=== PATIENT | male | born 1945 | race Caucasian/White ===

== ENCOUNTER 2018-02-22 19:58 | Inpatient (IN) | payer OTHER ==
[~2018-02-22] VITALS: Ht 167.6 cm; Wt 178.6 kg
[2018-02-22 20:36] LABS: HEMATOCRIT 37.7 % (38.0-50.0); HEMOGLOBIN 12.3 G/DL (12.5-16.6); MCH 29.6 PG (29.0-34.0); MCHC 32.6 G/DL (30.0-36.0); MCV 90.6 FL (86-99); PLATELET COUNT 278 K/uL (156-360); RBC DIS.WIDTH-CV 14.7 % (11.8-14.6); RBC DIS.WIDTH-SD 48.7 % (39-53); RED BLOOD COUNT 4.16 M/uL (4.00-5.50); WHITE BLOOD COUNT 8.2 K/uL (4.1-10.2)
[2018-02-22] MEDS ORDERED: ASPIRIN81 M2 PO (20:37)
[2018-02-22] MEDS ORDERED: PRAVACHOL40 MG PO (20:38)
[2018-02-22] MEDS ORDERED: TERAZOSIN HCL5 MG PO (20:38)
[2018-02-22] MEDS ORDERED: METFORMIN HCL1000 MG PO (20:38)
[2018-02-22] MEDS ORDERED: VASOTEC5 MG PO (20:38)
[2018-02-22] MEDS ORDERED: HYDROCHLOROTHIA25 MG PO (20:38)
[2018-02-22] MEDS ORDERED: GABAPENTIN100 MG PO (20:39)
[2018-02-22] MEDS ORDERED: LEVEMIR100 UNIT/2 SC ×2 (20:39→23:13)
[2018-02-22] MEDS ORDERED: NOVOLOG 10100 UNITS/ SC ×2 (20:41)
[2018-02-22 20:54] LABS: CHLORIDE 105 mEq/L (99-109); POTASSIUM 3.8 mEq/L (3.7-5.4); SODIUM 143 mEq/L (136-147)
[2018-02-22 20:55] LABS: GLUCOSE 80 mg/dL (70-99)
[2018-02-22 20:59] LABS: CREATININE 0.8 mg/dL (0.6-1.3); GFR ESTIMATE (CALCULATED) > 59 mL/min/ (58.99-99999)
[2018-02-22 21:00] LABS: UREA NITROGEN (BUN) 18 mg/dL (9-23)
[2018-02-22 21:03] LABS: TROP-I INTERPRETATION NEGATIVE; TROPONIN-I 0.02 ng/mL (0.0-0.30)
[2018-02-22 21:06] LABS: BASE EXCESS 3.1 mEq/L (-3 to +3); CARBOXY HGB 1.8 % (0-5); DEVICE NC; METHEMOGLOBIN 0.5 % (0-1.5); O2 FLOW 5 L/MIN; PCO2 49 mm Hg (35-45); PO2 73 mm Hg (80-100); SITE LR; TOTAL RESP RATE 24 resp/min; pH 7.38 (7.35-7.45)
[2018-02-22] MEDS ORDERED: PRAVASTATIN SOD40 MG PO (23:11)
[2018-02-22] MEDS ORDERED: ENALAPRIL MALEAT5 MG PO (23:11)
[2018-02-22] MEDS ORDERED: HYTRIN5 MG PO (23:11)
[2018-02-23 00:31] VITALS: BP 141/74
[2018-02-23 04:56] VITALS: BP 156/72
[2018-02-23 06:16] LABS: HEMATOCRIT 39.3 % (38.0-50.0); HEMOGLOBIN 12.2 G/DL (12.5-16.6); MCH 28.5 PG (29.0-34.0); MCV 91.8 FL (86-99); PLATELET COUNT 257 K/uL (156-360); RBC DIS.WIDTH-CV 14.9 % (11.8-14.6); RBC DIS.WIDTH-SD 49.4 % (39-53); RED BLOOD COUNT 4.28 M/uL (4.00-5.50); WHITE BLOOD COUNT 9.7 K/uL (4.1-10.2)
[2018-02-23 06:35] LABS: CHLORIDE 103 MEQ/L (99-109); CREATININE 0.7 MG/DL (0.6-1.3); GFR ESTIMATE (CALCULATED) > 59 mL/min/ (58.99-99999); SODIUM 142 MEQ/L (136-147); UREA NITROGEN (BUN) 19 mg/dL (9-23)
[2018-02-23 06:40] LABS: GLUCOSE 208 mg/dL (70-99); POTASSIUM 4.9 MEQ/L (3.7-5.4)
[2018-02-23 06:45] VITALS: BP 152/78
[2018-02-23] MEDS ORDERED: BENEFIBER236 GM PO (12:03)
[2018-02-23 15:45] VITALS: BP 142/75
[2018-02-23 22:35] VITALS: BP 119/56
[2018-02-24 06:16] LABS: BASOPHIL (%) 0.6 % (0-1); BASOPHIL COUNT 0.1 K/uL (0-0.1); EOSINOPHIL (%) 2.8 % (0-5); EOSINOPHIL COUNT 0.3 K/uL (0-0.3); HEMATOCRIT 37.4 % (38.0-50.0); HEMOGLOBIN 11.6 G/DL (12.5-16.6); IMMATURE GRANULOCYTE (%) 0.4 % (0.0-0.7); LYMPHOCYTE (%) 12.3 % (15-42); LYMPHOCYTE COUNT 1.2 K/uL (1.0-2.8); MCH 28.6 PG (29.0-34.0); MCV 92.3 FL (86-99); MONOCYTE (%) 9.4 % (3-12); MONOCYTE COUNT 0.9 K/uL (0-0.8); NEUTROPHIL (%) 74.5 % (45-76); NEUTROPHIL COUNT 7.1 K/uL (1.8-6.4); PLATELET COUNT 274 K/uL (156-360); RBC DIS.WIDTH-CV 14.9 % (11.8-14.6); RBC DIS.WIDTH-SD 50.5 % (39-53); RED BLOOD COUNT 4.05 M/uL (4.00-5.50); WHITE BLOOD COUNT 9.5 K/uL (4.1-10.2)
[2018-02-24 06:41] LABS: CHLORIDE 103 MEQ/L (99-109); CREATININE 0.8 MG/DL (0.6-1.3); GFR ESTIMATE (CALCULATED) > 59 mL/min/ (58.99-99999); GLUCOSE 138 mg/dL (70-99); POTASSIUM 5.2 MEQ/L (3.7-5.4); SODIUM 144 MEQ/L (136-147); UREA NITROGEN (BUN) 23 mg/dL (9-23)
[2018-02-24 06:50] VITALS: BP 127/78
[2018-02-24 15:45] VITALS: BP 151/86
[2018-02-24 22:30] VITALS: BP 142/57
[2018-02-25 05:52] LABS: BASOPHIL (%) 0.7 % (0-1); BASOPHIL COUNT 0.1 K/uL (0-0.1); EOSINOPHIL (%) 3.8 % (0-5); EOSINOPHIL COUNT 0.3 K/uL (0-0.3); HEMATOCRIT 38.6 % (38.0-50.0); HEMOGLOBIN 11.9 G/DL (12.5-16.6); IMMATURE GRANULOCYTE (%) 0.5 % (0.0-0.7); LYMPHOCYTE (%) 12.4 % (15-42); LYMPHOCYTE COUNT 1.1 K/uL (1.0-2.8); MCH 28.5 PG (29.0-34.0); MCHC 30.8 G/DL (30.0-36.0); MCV 92.6 FL (86-99); MONOCYTE (%) 8.8 % (3-12); MONOCYTE COUNT 0.8 K/uL (0-0.8); NEUTROPHIL (%) 73.8 % (45-76); NEUTROPHIL COUNT 6.5 K/uL (1.8-6.4); PLATELET COUNT 253 K/uL (156-360); RBC DIS.WIDTH-CV 14.9 % (11.8-14.6); RBC DIS.WIDTH-SD 50.8 % (39-53); RED BLOOD COUNT 4.17 M/uL (4.00-5.50); WHITE BLOOD COUNT 8.9 K/uL (4.1-10.2)
[2018-02-25 06:17] LABS: CHLORIDE 101 MEQ/L (99-109); CREATININE 0.8 MG/DL (0.6-1.3); GFR ESTIMATE (CALCULATED) > 59 mL/min/ (58.99-99999); GLUCOSE 144 mg/dL (70-99); POTASSIUM 4.5 MEQ/L (3.7-5.4); SODIUM 142 MEQ/L (136-147); UREA NITROGEN (BUN) 21 mg/dL (9-23)
[2018-02-25 07:22] VITALS: BP 117/56
[2018-02-25 16:55] VITALS: BP 160/74
[2018-02-25 23:06] VITALS: BP 120/58
[2018-02-26 05:50] LABS: BASOPHIL (%) 0.8 % (0-1); BASOPHIL COUNT 0.1 K/uL (0-0.1); EOSINOPHIL (%) 3.6 % (0-5); EOSINOPHIL COUNT 0.3 K/uL (0-0.3); HEMATOCRIT 37.3 % (38.0-50.0); HEMOGLOBIN 11.3 G/DL (12.5-16.6); IMMATURE GRANULOCYTE (%) 0.3 % (0.0-0.7); LYMPHOCYTE (%) 15.8 % (15-42); LYMPHOCYTE COUNT 1.2 K/uL (1.0-2.8); MCHC 30.3 G/DL (30.0-36.0); MCV 92.6 FL (86-99); MONOCYTE (%) 9.1 % (3-12); MONOCYTE COUNT 0.7 K/uL (0-0.8); NEUTROPHIL (%) 70.4 % (45-76); NEUTROPHIL COUNT 5.4 K/uL (1.8-6.4); PLATELET COUNT 245 K/uL (156-360); RBC DIS.WIDTH-CV 14.5 % (11.8-14.6); RBC DIS.WIDTH-SD 48.9 % (39-53); RED BLOOD COUNT 4.03 M/uL (4.00-5.50); WHITE BLOOD COUNT 7.6 K/uL (4.1-10.2)
[2018-02-26 06:17] LABS: CHLORIDE 101 MEQ/L (99-109); CREATININE 0.7 MG/DL (0.6-1.3); GFR ESTIMATE (CALCULATED) > 59 mL/min/ (58.99-99999); GLUCOSE 99 mg/dL (70-99); POTASSIUM 4.1 MEQ/L (3.7-5.4); SODIUM 141 MEQ/L (136-147); UREA NITROGEN (BUN) 19 mg/dL (9-23)
[2018-02-26 07:05] VITALS: BP 141/90
[2018-02-26 15:10] VITALS: BP 180/86
[2018-02-26 22:56] VITALS: BP 157/63
[2018-02-27 07:05] VITALS: BP 139/67
[2018-02-27 11:55] LABS: COMMENTS - BLOOD GASES A+C+; O2 FLOW 2 L/MIN; SITE LR
[2018-02-27 11:56] LABS: CARBOXY HGB 1.7 % (0-5); DEVICE NC; METHEMOGLOBIN 0.7 % (0-1.5); PCO2 52 mm Hg (35-45); PO2 68 mm Hg (80-100); TOTAL RESP RATE 16 resp/min; pH 7.39 (7.35-7.45)
[2018-02-27 11:57] LABS: BASE EXCESS 5.4 mEq/L (-3 to +3); BICARBONATE 31.5 mEq/L (22-26)
[2018-02-27 15:00] VITALS: BP 147/86
[2018-02-27 22:00] VITALS: BP 166/76
[2018-02-27 23:51] VITALS: BP 145/68
[2018-02-28 06:18] LABS: BASOPHIL (%) 1.1 % (0-1); BASOPHIL COUNT 0.1 K/uL (0-0.1); EOSINOPHIL (%) 5.9 % (0-5); EOSINOPHIL COUNT 0.4 K/uL (0-0.3); HEMATOCRIT 37.4 % (38.0-50.0); HEMOGLOBIN 11.7 G/DL (12.5-16.6); IMMATURE GRANULOCYTE (%) 0.3 % (0.0-0.7); LYMPHOCYTE (%) 15.8 % (15-42); MCH 28.7 PG (29.0-34.0); MCHC 31.3 G/DL (30.0-36.0); MCV 91.9 FL (86-99); MONOCYTE (%) 10.7 % (3-12); MONOCYTE COUNT 0.7 K/uL (0-0.8); NEUTROPHIL (%) 66.2 % (45-76); NEUTROPHIL COUNT 4.4 K/uL (1.8-6.4); PLATELET COUNT 233 K/uL (156-360); RBC DIS.WIDTH-CV 14.6 % (11.8-14.6); RBC DIS.WIDTH-SD 49.7 % (39-53); RED BLOOD COUNT 4.07 M/uL (4.00-5.50); WHITE BLOOD COUNT 6.6 K/uL (4.1-10.2)
[2018-02-28 06:53] LABS: CHLORIDE 102 MEQ/L (99-109); CREATININE 0.6 MG/DL (0.6-1.3); GFR ESTIMATE (CALCULATED) > 59 mL/min/ (58.99-99999); POTASSIUM 4.3 MEQ/L (3.7-5.4); SODIUM 142 MEQ/L (136-147); UREA NITROGEN (BUN) 17 mg/dL (9-23)
[2018-02-28 06:58] LABS: GLUCOSE 65 mg/dL (70-99)
[2018-02-28 07:00] VITALS: BP 134/72
[2018-02-28 15:49] VITALS: BP 191/97
[2018-02-28 23:29] VITALS: BP 140/71
[2018-03-01 07:20] VITALS: BP 149/70
[2018-03-01 15:05] VITALS: BP 189/88
[2018-03-01] MEDS ORDERED: AMOX TR-K CLV1 EAC4 PO (16:50)
[2018-03-01] MEDS ORDERED: DUONEB 2.5-0.5 M3 ML AEROSOL (16:51)
[2018-03-01] MEDS ORDERED: ALBUTEROL2.5 MG/0.5 AEROSOL (16:51)
[2018-03-01] MEDS ORDERED: LOVENOX60 MG/0.6 SC (16:52)
[2018-03-01] MEDS ORDERED: NOVOLOG 10100 UNITS/ SC (16:53)
[2018-03-01 21:17] VITALS: BP 177/76
== END 2018-03-01 21:40 | DRG 194 ==
LOC: EME 19:58 → EDOF 22:34 → 5EAST 22:34 → ENRESERV 22:36 → 5EAST 23:48
PROVIDERS: Emergency Medicine; Family Medicine; Internal Medicine Pulmonary Disease
DX: J15.9 Unspecified bacterial pneumonia (principal); R09.02 Hypoxemia; I10 Essential (primary) hypertension; E78.5 Hyperlipidemia, unspecified; E66.01 Morbid (severe) obesity due to excess calories; R60.0 Localized edema; G47.33 Obstructive sleep apnea (adult) (pediatric); E87.2 Acidosis; I27.20 Pulmonary hypertension, unspecified; E11.649 Type 2 diabetes mellitus with hypoglycemia without coma; Z79.4 Long term (current) use of insulin; Z87.891 Personal history of nicotine dependence
CPT/HCPCS: 36600; 71046; 80048; 82948; 83605; 83880; 84145 90; 84484; 85025; 85027; 87040; 93005; 93306; 94640; 94760; 94799; 97530 GO; 97530 GP; 99281; 99285; J0360; J0456; J0696; J1650; J1815